=== PATIENT | male | born 1970 | race African-American/Black ===

== ENCOUNTER 2021-06-16 23:46 | Emergency (ER) ==
[2021-06-17] MEDS ORDERED: IBUPROFEN 400 MG TAB ONE (01:57)
[2021-06-17] MEDS ORDERED: TETANUS & DIPHTHERIA TOX,ADULT 0.5 ML VIAL ONE (02:33)
[2021-06-17 03:20] LABS: Absolute Lymphocytes (CBC) 1.4 K/uL (0.7-4.9); Basophils % 0.5 % (0-1.3); Hematocrit 40.4 % (39.6-49.0); Lymphocytes % 26.2 % (15.3-44.8); MPV 9.9 fL (7.6-11.3); RBC Red Blood Cell Count 5.04 M/uL (4.33-5.43)
[2021-06-17 03:30] LABS: Albumin 3.7 g/dL (3.4-5.0); Bilirubin Direct 0.2 mg/dL (0-0.2); Bilirubin Total 1.1 mg/dL (0.2-1.0); Potassium 3.6 mmol/L (3.5-5.1); Protein, Total 6.7 g/dL (6.4-8.2)
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
== END 2021-06-17 04:09 | disposition home or self-care (01) ==
LOC: ER 23:46
DX: S61.031A Puncture wound without foreign body of right thumb without damage to nail, initial encounter (principal); W46.0XXA Contact with hypodermic needle, initial encounter; Y93.89 Activity, other specified; Y92.149 Unspecified place in prison as the place of occurrence of the external cause; Z23 Encounter for immunization
CPT/HCPCS: 36415; 80048; 80076; 85025; 90471; 90714; 99283; G0433

== ENCOUNTER 2022-06-06 12:11 | Emergency (ER) | payer BC, OTHER ==
--- OUTSIDE RECORDS SUMMARY | 2022-06-06 12:26 | XMS REPORT | Continuity of Care Document ---
:1970 Author Organization [facility] Address [address] [place] [address] Dr. Gonzalez [address] [place] [id number] Care Team Providers Name Role Phone Michelle [place] Attending Clinician Unavailable Problems This patient has no known problems. Allergies, Adverse Reactions, Alerts This patient has no known allergies or adverse reactions. Medications This patient has no known medications. Procedures This patient has no known procedures. Encounters Start End Encounter Admission Attending Care Care Encounter Source Date/Time Date/Time Type Type Clinicians Facility Department ID 2021-11-12 Outpatient [place], [facility] [id number] Common 09:38:02 Michelle [id number] [facility] 2021-10-30 Outpatient [place], [facility] [id number] Common 14:09:47 MICHELLE [id number] [facility] 2021-10-30 Outpatient [place], [facility] [id number] Common 14:06:46 MICHELLE [id number] [facility] 2021-10-30 Outpatient [place], [facility] [id number] Common 14:05:32 MICHELLE [id number] [facility] Results This patient has no known results.
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
[2022-06-06 14:20] VITALS: BP 133/88; TEMP 98.8; O2SAT 99
== END 2022-06-06 13:10 | disposition home or self-care (01) ==
LOC: ER 12:11
DX: S09.90XA Unspecified injury of head, initial encounter (principal); S05.12XA Contusion of eyeball and orbital tissues, left eye, initial encounter
CPT/HCPCS: 70450; 70486; 76377; 99283